=== PATIENT | female | born 1950 | race Caucasian/White ===

== ENCOUNTER → 2018-09-03 | Outpatient (REF) | payer MEDICARE | LOC: M LAB LCGH 15:51 | PROVIDERS: ATTEND Surgery | DX: C76.51 Malignant neoplasm of right lower limb (principal) ==

== ENCOUNTER → 2019-03-29 | Outpatient (REF) | LOC: M LAB LCGH 11:52 | PROVIDERS: ATTEND Surgery | DX: K80.12 Calculus of gallbladder with acute and chronic cholecystitis without obstruction (principal) ==

== ENCOUNTER 2022-10-22 08:34 | Day surgery (SDC) | payer MEDICARE ==
[~2022-10-22] VITALS: Ht 160 cm; Wt 96.3 kg
[~2022-10-22 08:34] MED LIST: B-122500 PO; BSS IRRIG/VANCO(10MG)/TOBRA(5MG)/EPINEPH(1:1000-0.5CC)500ML BAG-ORONLY IR ONE; CEFUROXIME 1MG/0.1ML INTRACAMERAL INJ As Ordered ONE; CYCLOPENTOLATE 1% OPHTH SOLN 2ML BTL OS SCH; D-3-50003 PO; HYDR-3490 PO; LIDOCAINE 1% SDV 5ML VIAL As Ordered ONE; LIDOCAINE 3.5 % 1ML OPHTH TOPICAL GEL OU ONE; MAGN400C2 PO; MIDAZOLAM INJ 2MG/2ML VIAL As Ordered ONE; ODOR100T3 PO; OFLOXACIN 0.3 % (OCUFLOX) OPTH SOL 5ML OS ONE; PHENYLEPHRINE 10% OPHTH SOL 5ML OS PRN; PHENYLEPHRINE 2.5% OPHTH SOL 2ML OS SCH; TROPICAMIDE 1% OPHTH SOLN 15ML OS SCH; VITA100T59 PO; VITMTA PO; ZINC50TA34 PO; fentaNYL 100 MCG/2 ML INJECTION As Ordered ONE
[2022-10-22 10:42] VITALS: BP 142/86; TEMP 97.9; O2SAT 97
== END 2022-10-22 11:06 | disposition home or self-care (01) ==
LOC: M SDC 08:34
PROVIDERS: ATTEND Ophthalmology
DX: H25.12 Age-related nuclear cataract, left eye (principal); Z79.899 Other long term (current) drug therapy
CPT/HCPCS: 66984; 92015; J0697; J2250; J3010; V2788

== ENCOUNTER 2022-11-26 08:34 | Day surgery (SDC) | payer MEDICARE ==
[~2022-11-26] VITALS: Ht 160 cm; Wt 96.8 kg
[~2022-11-26 08:34] MED LIST changes: +CYCLOPENTOLATE 1% OPHTH SOLN 2ML BTL OD SCH; -CYCLOPENTOLATE 1% OPHTH SOLN 2ML BTL OS SCH; -MIDAZOLAM INJ 2MG/2ML VIAL As Ordered ONE; +OFLOXACIN 0.3 % (OCUFLOX) OPTH SOL 5ML OD ONE; -OFLOXACIN 0.3 % (OCUFLOX) OPTH SOL 5ML OS ONE; +PHENYLEPHRINE 10% OPHTH SOL 5ML OD PRN; -PHENYLEPHRINE 10% OPHTH SOL 5ML OS PRN; +PHENYLEPHRINE 2.5% OPHTH SOL 2ML OD SCH; -PHENYLEPHRINE 2.5% OPHTH SOL 2ML OS SCH; +TROPICAMIDE 1% OPHTH SOLN 15ML OD SCH; -TROPICAMIDE 1% OPHTH SOLN 15ML OS SCH; -fentaNYL 100 MCG/2 ML INJECTION As Ordered ONE
[2022-11-26] MEDS ORDERED: MIDAZOLAM INJ 2MG/2ML VIAL As Ordered ONE (11:16)
[2022-11-26] MEDS ORDERED: fentaNYL 100 MCG/2 ML INJECTION As Ordered ONE (11:16)
[2022-11-26 12:05] VITALS: BP 168/90; TEMP 97.3; O2SAT 100
== END 2022-11-26 12:10 | disposition home or self-care (01) ==
LOC: M SDC 08:34
PROVIDERS: ATTEND Ophthalmology
DX: H25.11 Age-related nuclear cataract, right eye (principal); Z87.891 Personal history of nicotine dependence; Z79.899 Other long term (current) drug therapy
CPT/HCPCS: 66984; 92015; J0697; J2250; J3010; V2788